=== PATIENT | female | born 1990 | race Caucasian/White ===

== ENCOUNTER → 2016-05-10 | Outpatient (CLI) | payer OTHER ==
[~2016-05-10] MED LIST: AMPH30CA3 PO; BCPILLS PO; NITR-5 PO; RANITAB33 PO; ZNTT/150 PO
[2016-05-16 23:33] LABS: IGA SERUM 127 mg/dL (81-463); TIS TRANS IGA 7 U/mL (<4)
[2016-05-17 15:08] LABS: ENDOMYSIAL IGA AB TC 15064 Negative (Negative)
== END | disposition home or self-care (01) ==
LOC: C.LAB1850 11:33
PROVIDERS: ATTEND Internal Medicine
DX: K62.5 Hemorrhage of anus and rectum (principal)

== ENCOUNTER → 2016-05-15 | Day surgery (SDC) | payer OTHER ==
[2016-05-14 13:38] VITALS: Ht 152.4 cm; Wt 54.5 kg
[~2016-05-15] VITALS: Ht 152.4 cm; Wt 54.5 kg
[~2016-05-15] MED LIST changes: +LIDOCAINE HCL 2% 2 ML VIAL (20MG/ML) ONE; +MIDAZOLAM HCL 1 MG/ML 2ML VIAL ONE; +ONDANSETRON INJ 2 MG/ML 2 ML VIAL ONE; +PROPOFOL IV EMULSION 10 MG/ML 20 ML VIAL IV ONE; +SODIUM CHLORIDE 0.9% 500ML 500 ML IV ONE
[2016-05-15 09:30] VITALS: TEMP 36.7
--- NOTE | 2016-05-15 10:02 | Endo History and Physical ---
History & Physical Date of Service: May 15, 2016. Chief Complaint: rectal bleeding Referring Physician: Dr. Johny Robles History of Present Illness 25 yo CF who presents for colonoscopy secondary to rectal bleeding. Past Surgical History Hx Cardiac Surgery: No Hx Internal Defibrillator: No Hx Pacemaker: No Hx Abdominal Surgery: No Hx of Implantable Prosthesis: No Hx Post-Op Nausea and Vomiting: No Hx Cancer Surgery: No Hx Thoracic Surgery: No Hx Orthopedic: No Hx Urinary Tract Surgery: No Family History None Social History Smoking Status: Never Smoker Hx Substance Use: No Hx Alcohol Use: Yes (OCCASIONAL) Allergies Coded Allergies: No Known Allergies (Verified , 05/14/16) Current Medications Reported Home Medications Medications Dose Route/Sig Max Daily Dose Days Date Category Macrobid (Nitrofurantoin Macrocrystals) 100 Mg Cap 100 Mg PO UD PRN 05/14/16 Reported Zantac (Ranitidine Hcl) 75 Mg Tab 75 Mg PO HS 12/01/15 Reported Adderall Xr 30MG (Amphetamine-Dextroamphetamine 30MG) 1 Cap Cap 30 Mg PO QAM 04/01/15 Reported Control Pills (Miscellaneous) Tab 1 Tab PO DAILY 08/16/07 Reported Vital Signs Weight (Kilograms): 54.55 Height (Feet): 5 Height (Inches): 0 Date Time Temp Pulse Resp B/P Pulse Ox O2 Delivery O2 Flow Rate FiO2 05/15/16 09:30 36.7 116 20 127/82 99 Room Air Physical Exam General Appearance: WD/WN, no apparent distress Respiratory/Chest: Auscultation: breath sounds normal Cardiovascular: Heart Auscultation: RRR Abdomen: Bowel Sounds: normal Inspection & Palpation: soft, non-distended, no tenderness, guarding & rebound Assessment and Plan Assessment: 25 yo CF who presents for colonoscopy secondary to rectal bleeding. Plan: Proceed with colonoscopy.
--- NOTE | 2016-05-15 10:34 | GI REPORT ---
Procedure Date: 05/15/2016 9:54 AM Procedure: Colonoscopy Indications: Rectal bleeding Medicines: Monitored Anesthesia Care Complications: No immediate complications. Estimated Blood Loss: Estimated blood loss: none. Procedure: Pre-Anesthesia Assessment: - Prior to the procedure, a History and Physical was performed, and patient medications and allergies were reviewed. The patient's tolerance of previous anesthesia was also reviewed. The risks and benefits of the procedure and the sedation options and risks were discussed with the patient. All questions were answered, and informed consent was obtained. Prior Anticoagulants: The patient has taken no previous anticoagulant or antiplatelet agents. ASA Grade Assessment: II - A patient with mild systemic disease. After reviewing the risks and benefits, the patient was deemed in satisfactory condition to undergo the procedure. After I obtained informed consent, the scope was passed under direct vision. Throughout the procedure, the patient's blood pressure, pulse, and oxygen saturations were monitored continuously. The scope was introduced through the anus and advanced to the terminal ileum. The colonoscopy was performed without difficulty. The patient tolerated the procedure well. The quality of the bowel preparation was good. The terminal ileum, ileocecal valve, appendiceal orifice, and rectum were photographed. Findings: A 10 mm polyp was found in the cecum. The polyp was flat. The polyp was removed with a hot snare. Resection and retrieval were complete. To prevent bleeding after the polypectomy, two hemostatic clips were successfully placed (MR conditional). There was no bleeding at the end of the procedure. Non-bleeding internal hemorrhoids were found during retroflexion. The hemorrhoids were small. Impression: - One 10 mm polyp in the cecum, removed with a hot snare. Resected and retrieved. Clips (MR conditional) were placed. - Non-bleeding internal hemorrhoids. Recommendation: - Resume previous diet. - Continue present medications. - Repeat colonoscopy for surveillance based on pathology results. - Return to primary care physician as previously scheduled. Jf Mckeon, DO 05/15/2016 10:33:02 AM This report has been signed electronically. Note Initiated On: 05/15/2016 9:54 AM I attest to the content of the Intraoperative Record and orders documented therein, exceptions below
--- NOTE | 2016-05-15 10:34 | Discharge Instructions ---
Endoscopy Patient Instructions Date / Procedure(s) Performed May 15, 2016. Colonoscopy Allergy Information Coded Allergies: No Known Allergies (Verified , 05/14/16) Discharge Date / Findings May 15, 2016. Colon polyp Internal hemorrhoids Medication Instructions OK to resume all medications today as prescribed Reported Home Medications Medications Dose Route/Sig Max Daily Dose Days Date Category Macrobid (Nitrofurantoin Macrocrystals) 100 Mg Cap 100 Mg PO UD PRN 05/14/16 Reported Zantac (Ranitidine Hcl) 75 Mg Tab 75 Mg PO HS 12/01/15 Reported Adderall Xr 30MG (Amphetamine-Dextroamphetamine 30MG) 1 Cap Cap 30 Mg PO QAM 04/01/15 Reported Control Pills (Miscellaneous) Tab 1 Tab PO DAILY 08/16/07 Reported Provider Instructions Activity Restrictions - No exercising or heavy lifting for 24 hours. - Do not drink alcohol the day of the procedure. - Do not drive a car or operate machinery until the day after the procedure. - Do not make any important decisions or sign important papers in 24 hours after the procedure. Following Day: - Return to full activity which may include returning to work/school. Diet Start your diet with liquids and light foods (jello, soup, juice, toast). Then eat your usual diet if not nauseated. Treatment For Common After Affects For mild abdominal pain, bloating, or excessive gas: - Rest - Eat lightly - Lie on right side Follow-Up Information Follow-up with Dr. Johny Robles as scheduled Anesthesia Information What You Should Know You have had a procedure that required some medicine to reduce anxiety and discomfort. This treatment is called moderate sedation. After receiving the treatment, you may be sleepy, but you will be able to breathe on your own. The effects of the treatment may last for several hours. Follow these instructions along with Activity/Diet recommendations noted above: * Do NOT do anything where dizziness or clumsiness would be dangerous. * Rest quietly at home today, then you can be up and about tomorrow. * Have a responsible person stay with you the rest of today. * You may have had an I.V. today. If so, you may take the dressing off later today. Recommendations Call your doctor if: * Trouble breathing * Continuous vomiting for more than 24 hours * Temperature above 101 degrees * Severe abdominal pain or bloating * Pain not relieved by pain medicine ordered * There is increased drainage or redness from any incision * A large amount of rectal bleeding greater than 2-3 tablespoons. (If you had a polyp/s removed or have hemorrhoids, a small amount of blood - from the rectum is to be expected.) * You have any unanswered questions or concerns. IN THE EVENT OF A SERIOUS EMERGENCY, GO TO THE NEAREST EMERGENCY ROOM Your discharge instructions were prepared by provider Jf Mckeon. Patient Instructions Signature Page Meghna Vimal Patient (or Guardian) Signature/Date: I have read and understand the instructions given to me by my caregivers. Caregiver/RN/Doctor Signature/Date: The above-named patient and/or guardian has received patient instructions on this date. + Original Patient Signature Page (only) stays with chart. Please make copy for patient.
--- NOTE | 2016-05-15 10:53 | Anesthesiology Progress Note ---
Anesthesia Post Op Note Date & Time May 15, 2016 at 10:53 Vital Signs Pain Intensity: 0 Vital Signs Past 12 Hours Date Time Temp Pulse Resp B/P Pulse Ox O2 Delivery O2 Flow Rate FiO2 05/15/16 10:46 96 20 115/73 99 Room Air 05/15/16 10:31 90 20 111/64 98 Room Air 05/15/16 09:30 36.7 116 20 127/82 99 Room Air Notes Mental Status: alert / awake / arousable, participated in evaluation Pt Amnestic to Procedure: Yes Nausea / Vomiting: adequately controlled Pain: adequately controlled Airway Patency, RR, SpO2: stable & adequate BP & HR: stable & adequate Hydration State: stable & adequate Anesthetic Complications: no major complications apparent
[2016-05-15 11:01] VITALS: BP 111/78; PULSE 87; O2SAT 100
== END | disposition home or self-care (01) ==
LOC: C.GI 09:12
PROVIDERS: ATTEND Internal Medicine
DX: K62.5 Hemorrhage of anus and rectum (principal); D12.0 Benign neoplasm of cecum; K64.8 Other hemorrhoids

== ENCOUNTER → 2016-05-25 | Outpatient (CLI) | payer OTHER ==
[~2016-05-25] MED LIST changes: -LIDOCAINE HCL 2% 2 ML VIAL (20MG/ML) ONE; -MIDAZOLAM HCL 1 MG/ML 2ML VIAL ONE; -ONDANSETRON INJ 2 MG/ML 2 ML VIAL ONE; -PROPOFOL IV EMULSION 10 MG/ML 20 ML VIAL IV ONE; -SODIUM CHLORIDE 0.9% 500ML 500 ML IV ONE
== END | disposition home or self-care (01) ==
LOC: C.PATHSPEC 16:08
PROVIDERS: ATTEND Obstetrics & Gynecology
DX: R87.610 Atypical squamous cells of undetermined significance on cytologic smear of cervix (ASC-US) (principal); R87.810 Cervical high risk human papillomavirus (HPV) DNA test positive

== ENCOUNTER → 2016-08-13 | Day surgery (SDC) | payer OTHER ==
[2016-08-07 10:26] VITALS: Ht 152.4 cm; Wt 54.5 kg
[~2016-08-13] VITALS: Ht 152.4 cm; Wt 54.5 kg
[~2016-08-13] MED LIST changes: +LIDOCAINE HCL 2% 2 ML VIAL (20MG/ML) ONE; +PROPOFOL IV EMULSION 10 MG/ML 20 ML VIAL IV ONE; -RANITAB33 PO; +SODIUM CHLORIDE 0.9% 500ML 500 ML IV ONE
--- NOTE | 2016-08-13 08:41 | Endo History and Physical ---
History & Physical Date of Service: August 13, 2016. Chief Complaint: reflux,positive celiac testing Referring Physician: Dr. Robles History of Present Illness 25 yo CF who presents for EGD secondary to GERD and positive Celiac antibodies. Past Surgical History Hx Cardiac Surgery: No Hx Internal Defibrillator: No Hx Pacemaker: No Hx Abdominal Surgery: No Hx Post-Op Nausea and Vomiting: No Hx Cancer Surgery: No Hx Thoracic Surgery: No Hx Orthopedic: No Hx Urinary Tract Surgery: No Family History None Social History Smoking Status: Never Smoker Hx Substance Use: No Hx Alcohol Use: Yes (OCCASIONAL) Allergies Coded Allergies: Gluten (Verified Allergy, Unknown, AVOIDS GLUTEN, 08/07/16) NO KNOWN DRUG ALLERGIES (Verified Allergy, Unknown, ., 08/07/16) Current Medications Reported Home Medications Medications Dose Route/Sig Max Daily Dose Days Date Category Zantac (Ranitidine HCl) 150 Mg Tab 150 Mg PO BID 08/07/16 Reported Macrobid (Nitrofurantoin Macrocrystals) 100 Mg Cap 100 Mg PO UD PRN 05/14/16 Reported Adderall Xr 30MG (Amphetamine-Dextroamphetamine 30MG) 1 Cap Cap 30 Mg PO QAM 04/01/15 Reported Control Pills (Miscellaneous) Tab 1 Tab PO DAILY 08/16/07 Reported Vital Signs Weight (Kilograms): 54.55 Height (Feet): 5 Height (Inches): 0 Date Time Temp Pulse Resp B/P Pulse Ox O2 Delivery O2 Flow Rate FiO2 08/13/16 08:36 36.9 93 18 119/67 99 Room Air Physical Exam General Appearance: WD/WN, no apparent distress Respiratory/Chest: Auscultation: breath sounds normal Cardiovascular: Heart Auscultation: RRR Abdomen: Bowel Sounds: normal Inspection & Palpation: soft, non-distended, no tenderness, guarding & rebound Assessment and Plan Assessment: 25 yo CF who presents for EGD secondary to GERD and positive Celiac antibodies. Plan: Proceed with EGD.
--- NOTE | 2016-08-13 09:08 | Discharge Instructions ---
Endoscopy Patient Instructions Date / Procedure(s) Performed August 13, 2016. EGD Allergy Information Coded Allergies: Gluten (Verified Allergy, Unknown, AVOIDS GLUTEN, 08/07/16) NO KNOWN DRUG ALLERGIES (Verified Allergy, Unknown, ., 08/07/16) Discharge Date / Findings August 13, 2016. Duodenal biopsies Gastric antrum biopsies Medication Instructions OK to resume all medications today as prescribed Reported Home Medications Medications Dose Route/Sig Max Daily Dose Days Date Category Zantac (Ranitidine HCl) 150 Mg Tab 150 Mg PO BID 08/07/16 Reported Macrobid (Nitrofurantoin Macrocrystals) 100 Mg Cap 100 Mg PO UD PRN 05/14/16 Reported Adderall Xr 30MG (Amphetamine-Dextroamphetamine 30MG) 1 Cap Cap 30 Mg PO QAM 04/01/15 Reported Control Pills (Miscellaneous) Tab 1 Tab PO DAILY 08/16/07 Reported Provider Instructions Activity Restrictions - No exercising or heavy lifting for 24 hours. - Do not drink alcohol the day of the procedure. - Do not drive a car or operate machinery until the day after the procedure. - Do not make any important decisions or sign important papers in 24 hours after the procedure. Following Day: - Return to full activity which may include returning to work/school. Diet Start your diet with liquids and light foods (jello, soup, juice, toast). Then eat your usual diet if not nauseated. Treatment For Common After Affects For mild abdominal pain, bloating, or excessive gas: - Rest - Eat lightly - Lie on right side Follow-Up Information Follow-up with Dr. Robles as scheduled Anesthesia Information What You Should Know You have had a procedure that required some medicine to reduce anxiety and discomfort. This treatment is called moderate sedation. After receiving the treatment, you may be sleepy, but you will be able to breathe on your own. The effects of the treatment may last for several hours. Follow these instructions along with Activity/Diet recommendations noted above: * Do NOT do anything where dizziness or clumsiness would be dangerous. * Rest quietly at home today, then you can be up and about tomorrow. * Have a responsible person stay with you the rest of today. * You may have had an I.V. today. If so, you may take the dressing off later today. Recommendations Call your doctor if: * Trouble breathing * Continuous vomiting for more than 24 hours * Temperature above 101 degrees * Severe abdominal pain or bloating * Pain not relieved by pain medicine ordered * There is increased drainage or redness from any incision * A large amount of rectal bleeding greater than 2-3 tablespoons. (If you had a polyp/s removed or have hemorrhoids, a small amount of blood - from the rectum is to be expected.) * You have any unanswered questions or concerns. IN THE EVENT OF A SERIOUS EMERGENCY, GO TO THE NEAREST EMERGENCY ROOM Your discharge instructions were prepared by provider Jf Mckeon. Patient Instructions Signature Page Meghna Vimal Patient (or Guardian) Signature/Date: I have read and understand the instructions given to me by my caregivers. Caregiver/RN/Doctor Signature/Date: The above-named patient and/or guardian has received patient instructions on this date. + Original Patient Signature Page (only) stays with chart. Please make copy for patient.
--- NOTE | 2016-08-13 09:12 | GI REPORT ---
Procedure Date: 08/13/2016 9:00 AM Procedure: Upper GI endoscopy Indications: Gastro-esophageal reflux disease, Positive celiac serologies Medicines: Monitored Anesthesia Care Complications: No immediate complications. Estimated Blood Loss: Estimated blood loss: none. Procedure: Pre-Anesthesia Assessment: - Prior to the procedure, a History and Physical was performed, and patient medications and allergies were reviewed. The patient's tolerance of previous anesthesia was also reviewed. The risks and benefits of the procedure and the sedation options and risks were discussed with the patient. All questions were answered, and informed consent was obtained. Prior Anticoagulants: The patient has taken no previous anticoagulant or antiplatelet agents. ASA Grade Assessment: II - A patient with mild systemic disease. After reviewing the risks and benefits, the patient was deemed in satisfactory condition to undergo the procedure. After obtaining informed consent, the endoscope was passed under direct vision. Throughout the procedure, the patient's blood pressure, pulse, and oxygen saturations were monitored continuously. The On-site loaner was introduced through the mouth, and advanced to the second part of duodenum. The upper GI endoscopy was accomplished without difficulty. The patient tolerated the procedure well. Findings: The esophagus was normal. The entire examined stomach was normal. Biopsies were taken with a cold forceps for Helicobacter pylori testing. The examined duodenum was normal. Biopsies for histology were taken with a cold forceps for evaluation of celiac disease. Impression: - Normal esophagus. - Normal stomach. Biopsied. - Normal examined duodenum. Biopsied. Recommendation: - Resume previous diet. - Continue present medications. - Await pathology results. - Return to GI office as previously scheduled. Jf Mckeon DO 08/13/2016 9:11:32 AM This report has been signed electronically. Note Initiated On: 08/13/2016 9:00 AM I attest to the content of the Intraoperative Record and orders documented therein, exceptions below
--- NOTE | 2016-08-13 09:32 | Anesthesiology Progress Note ---
Anesthesia Post Op Note Date & Time August 13, 2016 at 09:32 Vital Signs Pain Intensity: 0 Vital Signs Past 12 Hours Date Time Temp Pulse Resp B/P Pulse Ox O2 Delivery O2 Flow Rate FiO2 08/13/16 09:29 88 18 127/90 99 Room Air 08/13/16 09:13 98 18 109/80 97 Room Air 08/13/16 08:36 36.9 93 18 119/67 99 Room Air Notes Mental Status: alert / awake / arousable, participated in evaluation Pt Amnestic to Procedure: Yes Nausea / Vomiting: adequately controlled Pain: adequately controlled Airway Patency, RR, SpO2: stable & adequate BP & HR: stable & adequate Hydration State: stable & adequate Anesthetic Complications: no major complications apparent
[2016-08-13 09:54] VITALS: BP 110/83; PULSE 84; O2SAT 99
== END | disposition home or self-care (01) ==
LOC: C.GI 08:13
PROVIDERS: ATTEND Internal Medicine
DX: K29.50 Unspecified chronic gastritis without bleeding (principal); K21.9 Gastro-esophageal reflux disease without esophagitis

== ENCOUNTER → 2017-03-13 | Outpatient (CLI) | payer OTHER ==
[~2017-03-13] MED LIST changes: -LIDOCAINE HCL 2% 2 ML VIAL (20MG/ML) ONE; -PROPOFOL IV EMULSION 10 MG/ML 20 ML VIAL IV ONE; -SODIUM CHLORIDE 0.9% 500ML 500 ML IV ONE
--- NOTE | 2017-03-13 16:09 | DIAGNOSTIC IMAGING REPORT ---
SOFT TISS HEAD/NECK-THYROID HISTORY: Nodule E07.89 Thyroid fullness COMPARISON: None. FINDINGS: Right lobe: Maximum dimension 4.5 cm. Uniform echogenicity. Left lobe: Maximum dimension 4.6 cm. Uniform echogenicity. Isthmus: No nodules. IMPRESSION: Normal thyroid ultrasound. No significant parenchymal nodularity The above report was generated using voice recognition software. It may contain grammatical, syntax or spelling errors. Electronically signed by: Noam Vernon M.D. 03/13/2017 4:08 PM Dictated Date/Time: 03/13/2017 4:07 PM
== END | disposition home or self-care (01) ==
LOC: C.ULTR 15:35
PROVIDERS: ATTEND Nurse Practitioner
DX: E07.89 Other specified disorders of thyroid (principal)

== ENCOUNTER → 2017-03-27 | Outpatient (CLI) | payer OTHER ==
[~2017-03-27] MED LIST changes: +RANI150T85 PO; -ZNTT/150 PO
== END | disposition home or self-care (01) ==
LOC: C.PAPS 09:33
PROVIDERS: ATTEND Obstetrics & Gynecology
DX: N87.0 Mild cervical dysplasia (principal)